=== PATIENT | male | born 1985 | race Caucasian/White ===

== ENCOUNTER 2023-10-15 10:24 | Emergency (ER) | payer BC, SELFPAY ==
--- NOTE | 2023-10-15 10:54 | EXP.UTC ---
Discharge Plan Disposition Patient Disposition: Home, Self-Care Condition: Good Prescriptions Prescriptions: New prednisone 20 mg tablet 20 mg PO BID 5 Days Qty: 10 0RF betamethasone dipropionate 0.05 % ointment 1 applic topical BID 7 Days Qty: 45 0RF Referrals Follow up/Referrals: Provider,Referral, MD [Primary Care Provider] - See instructions Activity Restrictions/Add. Instructions Additional Instructions/Restrictions: Try to identify and avoid the activities that are contributing to this condition (anything that irritates your hands, etc). Don't start the oral steroids until tomorrow. Don't put the topical steroids (betamethazone) on your face or your groin. This a very high potency steroid cream. Please make sure it is only applied to the affected surfaces and only use it for the prescribed amount of time. Follow up with your regular doctor. GO TO THE ER FOR ANY WORSENING SYMPTOMS OR CONCERNS Clinical Impressions Clinical Impression: Dyshidrotic dermatitis Stand Alone Forms Stand Alone Forms: Work/School Release Instructions Patient Instructions: Prednisone, Betamethasone Topical, Dexamethasone Injection Print Language Print Language: Vietnamese Discharge ED Provider: Huan Clemens [facility] [place] General Stated complaint: rash, skin reaction to both hands Time Seen by Provider: 10/15/23 10:54 History of Present Illness Provider Complaint: He states that for the past several weeks he has had worsening rash, itching and cracking of the skin on both his hands. He has a history of psoriasis, but he states that this is different than his normal symptoms. He states that wearing the gloves that he has to wear for his job seem to make his symptoms worse. Related Data Previous Rx's ?Medication ?Instructions ?Recorded betamethasone dipropionate 0.05 % 1 applic topical BID 7 days #45 10/15/23 topical ointment grams prednisone 20 mg tablet 20 mg PO BID 5 days #10 tabs 10/15/23 Allergies Allergy/AdvReac Type Severity Reaction Status Date / Time No Known Allergies Allergy Verified 10/15/23 11:07 [facility] Disclaimer: The information contained in this section may have been updated after the patient was seen, as this information can be updated by other users. Social History Smoking Status: Never smoker alcohol intake: never current occupational status: employed Travel in the last 8 weeks: None ROS Obtained: Yes All systems reviewed & no additional complaints except as documented Constitutional Constitutional: Denies chills and Denies fever(s) Eyes Eyes: Denies eye discharge ENT Ears, Nose, Mouth, and Throat: Denies dizziness, Denies otalgia and Denies sore throat Cardiovascular Cardiovascular: Denies chest pain Respiratory Respiratory: Denies shortness of breath, Denies chest congestion, Denies cough, Denies stridor and Denies wheezing Gastrointestinal Gastrointestingal: Denies nausea or vomiting Musculoskeletal Musculoskeletal: Reports system reviewed and no additional complaints, except as documented and Denies arthralgias Integumentary/Breasts Skin/Breast: Denies rash Neurologic Neurologic: Denies dizziness and Denies paresthesias Allergic/Immunologic Allergic/Immunologic: Denies wheezing Physical Exam General General appearance: alert and in no apparent distress Head Head exam: atraumatic, normocephalic and normal inspection Eye Eye exam: Present normal appearance, PERRL and EOMI ENT ENT exam: Present normal exam, normal oropharynx, mucous membranes moist, TM's normal bilaterally and normal external ear exam Neck Neck exam: Present normal inspection, full ROM and trachea midline; Absent meningismus or lymphadenopathy Chest Chest inspection: Present normal inspection and symmetric chest wall rise; Absent tenderness Respiratory Respiratory exam: Present normal lung sounds bilaterally; Absent respiratory distress Cardiovascular Cardiovascular exam: Present regul
[2023-10-15 11:01] VITALS: BP 164/112; PULSE 80; RESP 16; TEMP 36.6; O2SAT 98; BMI 29.0
[2023-10-15 11:37] VITALS: BP 164/112; PULSE 80; RESP 16; TEMP 36.6
== END 2023-10-15 11:38 | disposition home or self-care (01) ==
PROVIDERS: Emergency Provider Nurse Practitioner Family
DX: L30.1 Dyshidrosis [pompholyx] (principal)
CPT/HCPCS: 96372; 99204; 99212; G0463; J1100